=== PATIENT | male | born 1995 | race Caucasian/White ===

== ENCOUNTER 2022-04-13 22:43 | Emergency (ER) | payer BC, OTHER ==
[~2022-04-13] VITALS: Ht 177.8 cm; Wt 137.5 kg
[2022-04-13] MEDS ORDERED: methylPREDNISolone SOD SUCC 125 MG/2 ML VL IM ONE (23:15)
[2022-04-13] MEDS ORDERED: diphenhdrAMINE HCL 50 MG/1 ML VL IM ONE (23:15)
[2022-04-14 01:27] VITALS: BP 126/89
[2022-04-14] MEDS ORDERED: PRED20TA2 PO (01:41)
[2022-04-14] MEDS ORDERED: DIPH25CA66 PO (01:41)
== END 2022-04-14 01:55 | disposition home or self-care (01) ==
LOC: ER 22:48
DX: T78.40XA Allergy, unspecified, initial encounter (principal); X58.XXXA Exposure to other specified factors, initial encounter
CPT/HCPCS: 96372; 99284; J1200; J2930